=== PATIENT | female | born 1950 | race Caucasian/White ===

== ENCOUNTER → 2018-01-19 | Outpatient (CLI) | payer MEDICARE | LOC: M.RAD 15:49 | DX: Z12.31 Encounter for screening mammogram for malignant neoplasm of breast (principal); M81.0 Age-related osteoporosis without current pathological fracture ==

== ENCOUNTER → 2018-01-26 | Outpatient (CLI) | payer MEDICARE | LOC: M.RAD 01-20 16:13 | DX: N63.10 Unspecified lump in the right breast, unspecified quadrant (principal); R92.8 Other abnormal and inconclusive findings on diagnostic imaging of breast ==

== ENCOUNTER → 2018-01-31 | Outpatient (CLI) | payer MEDICARE | LOC: M.RAD 11:43 | DX: M25.551 Pain in right hip (principal) ==

== ENCOUNTER → 2021-01-16 | Outpatient (CLI) | payer MEDICARE ==
[2021-01-16 13:57] LABS: HEMATOCRIT 41.4 % (37.0-47.0); HEMOGLOBIN 13.8 gm/dL (12.0-15.0); MCHC 33.3 g/dL (28.0-37.0); MCV 89.9 fL (80.0-100.0); MPV 8.2 fl. (7.2-11.1); RBC 4.6 mil/uL (4.20-5.00); WBC 9.8 thou/uL (4.0-11.0)
[2021-01-16 14:11] LABS: ALBUMIN 3.8 g/dL (3.4-5.0); CALCIUM 8.8 mg/dL (8.5-10.1); CREATININE 0.8 mg/dL (0.6-1.3); POTASSIUM 4.2 mmol/L (3.5-5.1); TOTAL BILIRUBIN 0.3 mg/dL (<0.1-1.0); TOTAL PROTEIN 7.3 g/dL (6.4-8.2)
== END ==
LOC: M.LAB 13:38
PROVIDERS: ATTEND Internal Medicine Gastroenterology
DX: R53.83 Other fatigue (principal)

== ENCOUNTER → 2021-02-05 | Outpatient (CLI) | payer MEDICARE ==
[2021-02-05 10:35] LABS: ALBUMIN 3.4 g/dL (3.4-5.0); DIRECT BILIRUBIN 0.1 mg/dL (<0.1-0.3); TOTAL BILIRUBIN 0.2 mg/dL (<0.1-1.0); TOTAL PROTEIN 6.6 g/dL (6.4-8.2)
[2021-02-06 19:07] LABS: ANA INTERPRETATION Negative (())
== END ==
LOC: M.ULTRA 09:00
PROVIDERS: ATTEND Internal Medicine Gastroenterology
DX: R74.8 Abnormal levels of other serum enzymes (principal)

== ENCOUNTER → 2021-02-06 | Outpatient (CLI) | payer MEDICARE ==
--- NOTE | 2021-02-06 17:21 | CARDNUC ---
[place] [address] CARDIAC NUCLEAR IMAGING REPORT Name: ALBERTO ACOSTA Room: [facility]#: [id number] Admission: 02/06/21 Attend Phys: Rosette Babcock Discharge: Date of : 52 Date of Service: 02/06/21 1721 Report #: [id number] THIS REPORT FOR: cc: Rosette Alvarado Angela Jo RNP Liston, Michael J. MD [facility] ~ APPROVED REPORT Study performed: 02/06/2021 09:49:51 Exam: Nuclear Stress Test Indication: Chest pain Patient Location: Out-Patient Stress Tech: Shraddha Bergeron Stress Nurse: Juliet Harris RN Ht: 5 ft 4 in Wt: 170 lbs BSA: 1.83 m2 BMI: 29.17 Medical History Medical History: none Medications: no cardiac meds Allergies: No known drug allergies Cardiac Risk Factors: Age Exercise History: Physically active Stress Test Details Stress Test: Exercise stress testing was performed using a Gopal protocol. HR Resting HR: 82 bpm Max Heart Rate (APMHR): 151 bpm Max HR Achieved: 179 bpm Target HR (85% APMHR): 128 bpm % of APMHR: 118 Recovery HR: 97 bpm BP Resting BP: 119/91 mmHg Max BP: 205/74 mmHg ECG Resting ECG: Sinus Rhythm Stress ECG: Sinus Tachycardia ST Change: None Arrhythmia: [place] [address] CARDIAC NUCLEAR IMAGING REPORT Name: ALBERTO ACOSTA Room: [facility]#: [id number] Admission: 02/06/21 Attend Phys: Rosette Babcock Discharge: Date of : 52 Date of Service: 02/06/21 1721 Report #: [id number] Recovery ECG: Sinus Rhythm Recovery ST Change: None Recovery Arrhythmia: None Clinical Reason for Termination: Maximal effort, Dyspnea Exercise duration: 8 min 55 sec Exercise capacity: 10.16 METs Overall Exercise Capacity for Age: Superior Functional Aerobic Impairment 118% The patient tolerated standard Gopal protocol exercise without significant cardiac symptoms. Stress ECG Conclusion The baseline twelve-lead EKG shows sinus rhythm without significant ST segment or T wave abnormality. EKGs obtained during and post exercise show sinus rhythm and sinus tachycardia with no significant ST segment or T wave changes when compared to baseline. There were no stress-induced arrhythmias. NM EXAM: Myocardial Perfusion REST/STRESS Imaging Protocol: Rest Tc-99m/Stress Tc-99m 1 day Resting Data Rest SPECT myocardial perfusion imaging was performed in supine position 30 minutes following the intravenous injection of 10.4 mCi of Tc-99m Sestamibi. Time of rest injection: 08:25 The images were gated to evaluate regional wall motion and calculate left ventricular ejection fraction. Administration Route: IV Administration Site: Right Hand Exercise Stress At peak stress, the patient was injected intravenously with 30.1mCi of Tc-99m Sestamibi. Time of stress injection: 10:10 Administration Route: IV Administration Site: Right Hand Heart Rate at time of stress injection: 179 bpm. Patient continued to exercise for 1 minute(s). Gated Stress SPECT was performed 30 minutes after stress injection. The images were gated to evaluate regional wall motion and calculate left ventricular ejection fraction. Prone [place] [address] CARDIAC NUCLEAR IMAGING REPORT Name: ALBERTO ACOSTA Room: [facility]#: [id number] Admission: 02/06/21 Attend Phys: Rosette Babcock Discharge: Date of : 52 Date of Service: 02/06/21 1721 Report #: [id number] Comments ;10 Study Quality Study: Good Artifact: No artifact Study Data At rest, the left ventricular ejection fraction was 71%.. Post stress, the left ventricular ejection was 87%.. TID = 0.91. Perfusion Perfusion images obtained at rest and post exercise stress show uniform uptake of the radioisotope throughout the myocardium. There were no defects to suggest infarct or ischemia. Wall Motion Left ventricular systolic function appears normal. Wall motion is normal. Nuclear Conclusion ECG Findings: negative for ischemia Clinical Findings: negative for ischemia Nuclear Findings: negative for ischemia Exercise Capacity: normal Left Ventricular Function: normal Risk Study: low Myocardial perfusion images show no defect to suggest infarct or ischemia. Left ventricular systolic function appears normal on gated studies. Is a low risk study. <Conclusion> The baseline twelve-lead EKG shows sinus rhythm without significant ST segment or T wave abnormality. EKGs obtained during and post exercise show sinus rhythm and sinus tachycardia with no significant ST segment or T wave changes when compared to baseline. There were no stress-induced arrhythmias. <ELECTRONICALLY SIGNED> By: Wilber Moreno MD, FACC 02/06/211720 20 20 Wilber Moreno MD, FACC /INF
== END ==
LOC: M.NUC 01-29 09:09
PROVIDERS: ATTEND Nurse Practitioner Family
DX: R07.9 Chest pain, unspecified (principal)